=== PATIENT | male | born 1985 | race Caucasian/White ===

== ENCOUNTER 2016-10-28 12:56 | Emergency (ER) | payer OTHER | END 2016-10-28 14:32 | disposition home or self-care (01) | DX: J06.9 Acute upper respiratory infection, unspecified (principal); B97.89 Other viral agents as the cause of diseases classified elsewhere ==

== ENCOUNTER 2017-03-29 19:46 | Emergency (ER) | payer OTHER ==
[2017-03-29] MEDS ORDERED: SODIUM CHLORIDE 0.9% 1,000 ML IV ONE (20:28)
[2017-03-29] MEDS ORDERED: PROCHLORPERAZINE INJ 10 MG in SODIUM CHLORIDE 0.9% 50 ML IV ONE (20:28)
[2017-03-29] MEDS ORDERED: diphenhydrAMINE INJ 50 MG/ML VIAL IVP STA (20:28)
--- NOTE | 2017-03-29 20:31 | ED Physician Documentation ---
History of Present Illness - Stated complaint Stated Complaint: HEADACHE/DEHYDRATION - Chief complaint Chief Complaint: General - History obtained from History obtained from: Patient - Additonal information Additional information: She is a 31-year-old male who is the. He presents with a complaint of generalized malaise, fatigue, weakness and a frontal headache. His symptoms started on when he was exercising and believes he got exposed to excessive heat. He has been hydrating from that point to the present however the headache and malaise continues. He denies any chest pain or shortness of breath. There is no abdominal pain, nausea, vomiting constipation diarrhea or lower urinary symptoms. He does say his throat feels a little sore that he had a low-grade fever last night at 100.2. He did take a Tylenol today. Review of systems: For pertinent positive and negatives in the review of systems please see history of present illness. Otherwise all other systems have been reviewed and are negative. Dragon disclaimer: Parts of this medical record were created using voice recognition technology. Because of the inherent limitations of this system occasional same sounding word substitutions do occur and persist despite proofreading. Please read the document for context. Review of Systems Ten Systems: 10 systems reviewed and negative Constitutional: reports: Fever, Chills, Myalgias Eyes: denies: Loss of vision, Discharge Ears: denies: Loss of hearing, Tinnitus/ringing Nose: denies: Rhinorrhea / runny nose, Epistaxis Throat: reports: Sore throat Cardiac: denies: Chest pain / pressure, Palpitations Respiratory: denies: Dyspnea, Cough GI: denies: Abdominal Pain, Abdominal Swelling, Nausea, Vomiting : denies: Dysuria, Frequency PD PAST MEDICAL HISTORY - Past Medical History Past Medical History: Yes Cardiovascular: None Respiratory: None Neuro: None Endocrine/Autoimmune: None GI: None : Kidney stones HEENT: None Psych: None Musculoskeletal: None Derm: None - Past Surgical History Past Surgical History: No - Present Medications Home Medications: Ambulatory Orders Medication Instructions Recorded Confirmed Ibuprofen 600 mg PO Q6HR PRN #30 tablet 04/02/15 Ondansetron Odt [Zofran] 4 mg TL Q6H PRN #10 tablet 04/02/15 Oxycodone HCl/Acetaminophen 1 - 2 each PO Q6H PRN #15 tablet 07/19/15 [Percocet 5-325 mg Tablet] Tamsulosin [Flomax] 0.4 mg PO DAILY #10 capsule 04/02/15 Ondansetron Odt [Zofran] 4 mg TL Q6H PRN #10 tablet 04/10/15 Oxycodone HCl/Acetaminophen 1 - 2 each PO Q6H PRN #15 tablet 04/10/15 [Percocet 5-325 mg Tablet] Benzonatate [Tessalon [place]] 100 mg PO TID PRN #20 capsule 10/28/16 - Allergies Allergies/Adverse Reactions: Allergies Allergy/AdvReac Type Severity Reaction Status Date / Time No Known Drug Allergies Allergy Verified 03/29/17 20:01 - Social History Does the pt smoke?: No Smoking Status: Never smoker Does the pt drink ETOH?: No Does the pt have substance abuse?: No - Immunizations Immunizations are current?: Yes - POLST Patient has POLST: No PD ED PE NORMAL - Vitals Vital signs reviewed: Yes - General General: Alert and oriented X 3, No acute distress, Well developed/nourished - HEENT HEENT: Atraumatic, PERRL, Ears normal, Other - Neck Neck: Supple, no meningeal sign - Cardiac Cardiac: RRR, No murmur, No gallop, No rub - Respiratory Respiratory: No respiratory distress, Clear bilaterally - Abdomen Abdomen: Normal bowel sounds, Non tender, Non distended - Derm Derm: Normal color, Warm and dry, No rash, Other - Extremities Extremities: No deformity Results - Vitals Vitals: Vital Signs - 24 hr 03/29/17 03/29/17 03/29/17 19:58 21:15 22:43 Temperature 36.7 C 36.6 C Heart Rate 78 70 74 Respiratory 18 18 18 Rate Blood Pressure 114/72 116/72 O2 Saturation 96 98 98 03/29/17 23:32 Temperature Heart Rate 70 Respiratory 17 Rate Blood Pressure 128/57 L O2 Saturation 96 Oxygen O2 Source Room air - Labs Labs: Laboratory Tests 03/29/17 03/29/17 03/29/17 20:36 20:36 20:36 WBC 6.7 RBC 5.36 Hgb 14.4 Hct 42.5 MCV 79.2 L MCH 26.8 L MCHC 33.8 RDW 13.5 Plt Count 161 MPV 7.2 L Neut # 3.9 Lymph # 1.4 L [place] # 1.3 H Eos # 0.0 Baso # 0.0 Absolute Nucleated RBC 0.00 Nucleated RBCs 0.0 Sodium 137 Potassium 3.5 Chloride 99 L Carbon Dioxide 30 Anion Gap 8.0 BUN 9 Creatinine 0.7 Estimated GFR (MDRD) 132 Glucose 96 Calcium 8.9 Infectious [place] Assay NEGATIVE Group A Strep Rapid 03/29/17 20:56 WBC RBC Hgb Hct MCV MCH MCHC RDW Plt Count MPV Neut # Lymph # [place] # Eos # Baso # Absolute Nucleated RBC Nucleated RBCs Sodium Potassium Chloride Carbon Dioxide Anion Gap BUN Creatinine Estimated GFR (MDRD) Glucose Calcium Infectious [place] Assay Group A Strep Rapid Negative PD MEDICAL DECISION MAKING - ED course ED course: Patient is a healthy 31-year-old male who overheated while exercising on . The next few days he felt weak and tired and also had a little bit of throat pain and also was complaining of a frontal headache. Sure he does not feel good. On physical examination here he had a normal neurologic, cardiac , and pulmonary exam. It was noted that he had a slightly erythematous throat with a white pocket of pus. A throat swab was negative for strep and a Monospot was negative as well. He is given a liter of normal saline a small amount to [employer] and [employer] and watch for a couple hours. He slept briefly and woke up feeling much better his headache is gone and he looks and feels much better at this time. I am not sure exactly what is going on with him I think perhaps a little by heat exposure followed by possibly a viral syndrome. I do not think anything serious is going on with him and at this point in time he will be discharged home he says he will continue hydration orally at home watch his symptoms closely and return if worse. Disposition: To home Clinical impression: 1. Frontal headache-resolved 2. Suspect viral syndrome possibly some heat Exhaustion earlier in the week Departure - Departure Disposition: 01 Home, Self Care Clinical Impression: Head ache, Dehydration Condition: Good Instructions: ED Dehydration, ED Viral Syndrome Follow-Up: DORIE GOMES [Primary Care Provider] -
[2017-03-29] MEDS ORDERED: diphenhydrAMINE INJ 50 MG/ML VIAL ONE (20:44)
[2017-03-29] MEDS ORDERED: PROCHLORPERAZINE 10 MG/2 ML VIAL ONE (20:44)
[2017-03-29 20:45] LABS: BASOPHILS % (AUTO) 0.7 %; EOSINOPHILS % (AUTO) 0.4 %; HCT - HEMATOCRIT 42.5 % (42.0-52.0); HGB - HEMOGLOBIN 14.4 g/dL (14.0-18.0); LYMPHOCYTES # (AUTO) 1.4 10^3/uL (1.5-3.5); LYMPHOCYTES % (AUTO) 21.7 %; MEAN CORPUSCULAR HEMOGLOBIN 26.8 pg (27.0-31.0); MEAN CORPUSCULAR HGB CONC 33.8 g/dL (32.0-36.0); MEAN CORPUSCULAR VOLUME 79.2 fL (80.0-94.0); MEAN PLATELET VOLUME 7.2 fL (7.4-11.4); MONOCYTES # (AUTO) 1.3 10^3/uL (0.0-1.0); MONOCYTES % (AUTO) 19.1 %; NEUTROPHILS # (AUTO) 3.9 10^3/uL (1.5-6.6); NEUTROPHILS % (AUTO) 58.1 %; RED BLOOD COUNT 5.36 10^6/uL (4.70-6.10); RED CELL DISTRIBUTION WIDTH 13.5 % (12.0-15.0); UNCORRECTED WHITE BLOOD COUNT 6.7 x10^3/uL; WHITE BLOOD COUNT 6.7 x10^3/uL (4.8-10.8)
[2017-03-29 20:51] LABS: MONO NEG QC NEGATIVE (Negative); MONO POS QC POSITIVE (Positive)
[2017-03-29 20:52] LABS: CALCIUM 8.9 mg/dL (8.5-10.3); CREATININE 0.7 mg/dL (0.6-1.2); POTASSIUM 3.5 mmol/L (3.5-5.0)
[2017-03-29 21:10] LABS: RAPID STREP SCREEN REAGENT QC YELLOW (YELLOW)
[2017-03-29] MEDS ORDERED: SULFAMETH/TRIMETH DS 800/160 MG TABLET PO STA (22:23)
[2017-03-29] MEDS ORDERED: SULFAMETH/TRIMETH DS 800/160 MG TABLET PO ONE (22:37)
[2017-03-29 23:33] VITALS: BP 128/57
== END 2017-03-30 00:02 | disposition home or self-care (01) ==
LOC: ED 19:46
DX: E86.0 Dehydration (principal); R51 Headache
CPT/HCPCS: 36415; 80048; 85025; 86308; 87070; 87430; 96374; 96375; 99283; 99284; A9270

== ENCOUNTER 2020-12-12 17:51 | Emergency (ER) | payer OTHER ==
[2020-12-12 18:04] VITALS: BP 131/83
--- NOTE | 2020-12-12 18:15 | ED Physician Documentation ---
PD HPI HEENT - Stated complaint Stated Complaint: NOSE BLEED - Chief complaint Chief Complaint: Heent - History obtained from History obtained from: Patient - Additional information Additional information: He had 15 minutes of bleeding from the left nares prior to arrival. It has already stopped. No sinus symptoms. No easy bleeding or bruising. Review of Systems Constitutional: reports: Reviewed and negative Ears: reports: Reviewed and negative Nose: reports: Epistaxis, Reviewed and negative PD PAST MEDICAL HISTORY - Past Medical History Past Medical History: Yes Cardiovascular: None Respiratory: None Endocrine/Autoimmune: None GI: None : Kidney stones HEENT: None Psych: None Musculoskeletal: None Derm: None - Past Surgical History Past Surgical History: Yes - Present Medications Home Medications: Ambulatory Orders Medication Instructions Recorded Confirmed Ibuprofen 600 mg PO Q6HR PRN #30 tablet 04/02/15 12/12/20 - Allergies Allergies/Adverse Reactions: Allergies Allergy/AdvReac Type Severity Reaction Status Date / Time No Known Drug Allergies Allergy Verified 12/12/20 18:00 - Social History Does the pt smoke?: No Smoking Status: Never smoker Does the pt drink ETOH?: No Does the pt have substance abuse?: No - Immunizations Immunizations are current?: Yes - POLST Patient has POLST: No PD ED PE NORMAL - Vitals Vital signs reviewed: Yes - General General: Alert and oriented X 3, No acute distress - HEENT HEENT: Other (No active bleeding from the left nares, there is an abraded area on the septum.) - Neuro Neuro: Alert and oriented X 3, Normal speech Results - Vitals Vitals: Vital Signs - 24 hr 12/12/20 18:01 Temperature 37 C Heart Rate 71 Respiratory 16 Rate Blood Pressure 131/83 H O2 Saturation 97 Oxygen O2 Source Room air Departure - Departure Disposition: Home, Self Care Clinical Impression: Epistaxis Condition: Good Record reviewed to determine appropriate education?: Yes Instructions: ED Nosebleed Comments: Return as needed if bleeding recurs but you can try simple pressure first.
== END 2020-12-12 18:23 | disposition home or self-care (01) ==
LOC: ED 17:51
DX: R04.0 Epistaxis (principal); S00.31XA Abrasion of nose, initial encounter; X58.XXXA Exposure to other specified factors, initial encounter
CPT/HCPCS: 99281

== ENCOUNTER 2021-01-14 04:04 | Outpatient (CLI) | payer OTHER | END 2021-01-14 04:05 | disposition critical access hospital (66) | LOC: EMS 04:04 | DX: M54.5 Low back pain (principal); R10.9 Unspecified abdominal pain; R11.0 Nausea; R42 Dizziness and giddiness; Z87.442 Personal history of urinary calculi | CPT/HCPCS: A0425; A0427 ==

== ENCOUNTER 2021-01-14 04:26 | Emergency (ER) | payer OTHER ==
[2021-01-14] MEDS ORDERED: METOCLOPRAMIDE 10 MG/2 ML VIAL IVP STA (04:35)
[2021-01-14] MEDS ORDERED: SODIUM CHLORIDE 0.9% 1,000 ML IV STA (04:43)
[2021-01-14] MEDS ORDERED: KETOROLAC 30 MG/ML VIAL IVP STA (04:43)
--- NOTE | 2021-01-14 04:47 | ED Physician Documentation ---
History of Present Illness - Stated complaint Stated Complaint: LOWER BACK PAIN, DARK URINE - Chief complaint Chief Complaint: Abd Pain - History obtained from History obtained from: Patient - Additonal information Additional information: 35-year-old man with past medical history of kidney stones presents with sudden onset pain in the middle of the night in his right back radiating to the mid abdomen associated with nonbloody nonbilious nausea and vomiting. Patient states that he was feeling normal yesterday. He endorses going to the restroom attempting to urinate and having sharp pain in the penis with molasses like urine and difficulty initiating a stream. Pain is severe, constant, without exacerbating or relieving factors, not improved with fentanyl given by EMS. They also gave 4 of Zofran however he is still nauseous. Denies fevers, diarrhea, rashes. Review of Systems Ten Systems: 10 systems reviewed and negative Constitutional: denies: Fever, Chills GI: reports: Abdominal Pain, Nausea, Vomiting Musculoskeletal: reports: Back pain PD PAST MEDICAL HISTORY - Past Medical History Cardiovascular: None Respiratory: None Endocrine/Autoimmune: None GI: None : Kidney stones HEENT: None Psych: None Musculoskeletal: None Derm: None - Past Surgical History Past Surgical History: Yes - Present Medications Home Medications: Ambulatory Orders Medication Instructions Recorded Confirmed Ibuprofen 600 mg PO Q6HR PRN #30 tablet 04/02/15 12/12/20 Tamsulosin [Flomax] 0.4 mg PO DAILY #14 tab 01/14/21 oxyCODONE/ACET 5/325 [Percocet 5 1 each PO Q4-6H #14 tablet 01/14/21 mg/325 mg] - Allergies Allergies/Adverse Reactions: Allergies Allergy/AdvReac Type Severity Reaction Status Date / Time No Known Drug Allergies Allergy Unverified 01/14/21 04:33 - Social History Does the pt smoke?: No Smoking Status: Never smoker Does the pt drink ETOH?: No Does the pt have substance abuse?: No - Immunizations Immunizations are current?: Yes - POLST Patient has POLST: No PD ED PE NORMAL - Vitals Vital signs reviewed: Yes - General General: Alert and oriented X 3, Well developed/nourished, Other (Moderate distress) - HEENT HEENT: Atraumatic, PERRL, EOMI - Neck Neck: Supple, no meningeal sign - Cardiac Cardiac: RRR - Respiratory Respiratory: No respiratory distress, Clear bilaterally - Abdomen Abdomen: Non tender, Non distended, Other (Discomfort to suprapubic palpation) - Male Male : Deferred - Rectal Rectal: Deferred - Back Back: Other (Right CVA tender to palpation) - Derm Derm: Normal color, Warm and dry - Extremities Extremities: No deformity - Neuro Neuro: Alert and oriented X 3 - Psych Psych: Normal mood, Normal affect Results - Vitals Vitals: Vital Signs - 24 hr 01/14/21 04:33 Temperature 36.1 C L Heart Rate 78 Respiratory 22 Rate Blood Pressure 127/81 H O2 Saturation 97 Oxygen O2 Source Room air - Labs Labs: Laboratory Tests 01/14/21 01/14/21 01/14/21 05:12 05:40 05:40 WBC 11.0 H RBC 5.51 Hgb 15.5 Hct 44.8 MCV 81.3 MCH 28.1 MCHC 34.6 RDW 12.1 Plt Count 255 MPV 9.2 Neut # (Auto) 8.4 H Lymph # (Auto) 1.8 [place] # (Auto) 0.7 Eos # (Auto) 0.1 Baso # (Auto) 0.1 Absolute Nucleated RBC 0.00 Nucleated RBC % 0.0 Sodium 136 Potassium 3.3 L Chloride 101 Carbon Dioxide 26 Anion Gap 9.0 BUN 10 Creatinine 0.9 Estimated GFR (MDRD) 96 Glucose 173 H Calcium 8.7 Total Bilirubin 0.7 AST 21 ALT 26 Alkaline Phosphatase 87 Total Protein 7.6 Albumin 4.4 Globulin 3.2 Albumin/Globulin Ratio 1.4 Lipase 36 Urine Color YELLOW Urine Clarity CLEAR Urine pH 7.5 Ur Specific [place] 1.020 Urine Protein NEGATIVE Urine Glucose (UA) NEGATIVE Urine Ketones NEGATIVE Urine Occult Blood LARGE H Urine Nitrite NEGATIVE Urine Bilirubin NEGATIVE Urine Urobilinogen 0.2 (NORMAL) Ur Leukocyte Esterase NEGATIVE Urine RBC 11-25 H Urine WBC 0-3 Ur Squamous Epith Cells NONE SEEN Urine Bacteria Rare Urine Mucus Few Strands Ur Microscopic Review INDICATED Urine Culture Comments NOT INDICATED PD MEDICAL DECISION MAKING - ED course ED course: 35-year-old man presents with likely recurrent kidney stones. Will obtain CT, labs, urine and reassess. Departure - Departure Disposition: 01 Home, Self Care Clinical Impression: Kidney stones Condition: Good Instructions: Kidney Stones Follow-Up: Juany Loera MD [Physician No Access] - Prescriptions: Tamsulosin [Flomax] 0.4 mg PO DAILY #14 tab oxyCODONE/ACET 5/325 [Percocet 5 mg/325 mg] 1 each PO Q4-6H #14 tablet Comments: You are seen in the emergency department for kidney stones. You appear to have a moderate sized stone lodged in your left kidney and you have passed a smaller stone on the right side that would explain your symptoms. Hopefully, you should not have any more pain however I am going to prescribe a short course of pain medication. If you do not use it then make sure that you flushed down the toilet or dispose it appropriately at your local pharmacy. Return the emergency department if you have any new or worsening symptoms or other concerns. Follow- up with urology.
[2021-01-14 05:18] LABS: BILIRUBIN,URINE NEGATIVE (NEGATIVE); CLARITY,URINE CLEAR (CLEAR); GLUCOSE, URINE (UA) NEGATIVE (NEGATIVE); KETONES,URINE (UA) NEGATIVE (NEGATIVE); LEUKOCYTE ESTERASE, URINE NEGATIVE (NEGATIVE); NITRITE,URINE NEGATIVE (NEGATIVE); OCCULT BLOOD,URINE LARGE (NEGATIVE); PH,URINE 7.5 PH (5.0-7.5); PROTEIN,URINE NEGATIVE (NEGATIVE); UROBILINOGEN,URINE 0.2 (NORMAL) E.U./dL (NORMAL)
[2021-01-14] MEDS ORDERED: IOPAMIDOL-300 100 ML VIAL ONE (05:21)
[2021-01-14 05:25] LABS: BACTERIA,URINE Rare /HPF (None Seen); MUCUS,URINE Few Strands; SQUAMOUS EPITHELIAL CELL,UR NONE SEEN (<= Few); WBC,URINE 0-3 /HPF (0-3)
[2021-01-14 05:46] LABS: BASOPHILS # (AUTO) 0.1 10^3/uL (0.0-0.1); BASOPHILS % (AUTO) 0.5 %; EOSINOPHILS # (AUTO) 0.1 10^3/uL (0.0-0.7); EOSINOPHILS % (AUTO) 0.7 %; HCT - HEMATOCRIT 44.8 % (42.0-52.0); HGB - HEMOGLOBIN 15.5 g/dL (14.0-18.0); LYMPHOCYTES # (AUTO) 1.8 10^3/uL (1.5-3.5); MEAN CORPUSCULAR HEMOGLOBIN 28.1 pg (27.0-31.0); MEAN CORPUSCULAR HGB CONC 34.6 g/dL (32.0-36.0); MEAN CORPUSCULAR VOLUME 81.3 fL (80.0-94.0); MEAN PLATELET VOLUME 9.2 fL (7.4-11.4); MONOCYTES # (AUTO) 0.7 10^3/uL (0.0-1.0); NEUTROPHILS # (AUTO) 8.4 10^3/uL (1.5-6.6); NEUTROPHILS % (AUTO) 76.5 %; PLT - PLATELET COUNT 255 10^3/uL (130-450); RED BLOOD COUNT 5.51 10^6/uL (4.70-6.10); RED CELL DISTRIBUTION WIDTH 12.1 % (12.0-15.0)
[2021-01-14 05:59] LABS: ALBUMIN 4.4 g/dL (3.2-5.5); ALBUMIN/GLOBULIN RATIO 1.4 (1.0-2.2); BILIRUBIN,TOTAL 0.7 mg/dL (0.2-1.0); CALCIUM 8.7 mg/dL (8.5-10.3); CREATININE 0.9 mg/dL (0.6-1.2); POTASSIUM 3.3 mmol/L (3.5-5.0); TOTAL PROTEIN 7.6 g/dL (6.7-8.2)
[2021-01-14] MEDS ORDERED: IOPAMIDOL-300 100 ML VIAL IVP ONE (06:36)
[2021-01-14] MEDS ORDERED: ONDANSETRON 4 MG/2 ML VIAL IVP STA (06:40)
[2021-01-14 07:04] VITALS: BP 135/82
--- NOTE | 2021-01-14 10:44 | CT Report ---
PROCEDURE: Abdomen/Pelvis W INDICATIONS: Abdominal pain, acute, nonlocalized CONTRAST: IV CONTRAST: Isovue 300 ml: 100 PO CONTRAST: *NO PO CONTRAST TECHNIQUE: After the administration of nonionic contrast, 5 mm thick sections acquired from the diaphragms to th e symphysis. 5 mm thick coronal and sagittal reformats were acquired. For radiation dose reduction, the following was used: automated exposure control, adjustment of mA and/or kV according to patient size. COMPARISON: None. FINDINGS: Image quality: Excellent. ABDOMEN: Lung bases: Lung bases are clear. Heart size is normal. Solid organs: Liver and spleen are normal in size and enhancement. Gallbladder is unremarkable Chuck iary system is non dilated. Pancreas enhances normally. No adrenal nodules. There is a mildly delay ed right nephrogram. There is mild to moderate right-sided hydroureteronephrosis. There is an obstruc ting 3 mm calculi at the right ureterovesicular junction. There is mild inflammation adjacent to the right collecting system. Additional nonobstructing nephroliths are noted on the left side. Peritoneum and bowel: Bowel loops demonstrate normal wall thickness and caliber. No free fluid or a ir. Nodes and vessels: No retroperitoneal or mesenteric adenopathy by size criteria. Aorta and inferior vena cava are normal in size. Miscellaneous: Small fat-containing periumbilical hernia. PELVIS: Genitourinary: Bladder wall thickness is normal. Miscellaneous: No inguinal hernias or adenopathy. Bones: No suspicious bony lesions. No vertebral body compression fractures. IMPRESSION: Obstructing 3 mm right ureterovesicular junction calcification resulting in mild to moderate right hy droureteronephrosis. Agree with preliminary report. Reviewed by: Joel Antonio DO on 01/14/2021 9:43 AM ALDO Approved by: Joel Antonio DO on 01/14/2021 9:43 AM ALDO Station ID: [id number]
== END 2021-01-14 07:27 | disposition home or self-care (01) ==
LOC: EDUNIT# → ED 04:26
DX: N13.2 Hydronephrosis with renal and ureteral calculous obstruction (principal); N20.0 Calculus of kidney
CPT/HCPCS: 36415; 74177; 80053; 81001; 83690; 85025; 96361; 96374; 96375; 99284; J2765; Q9967; 81003; 87086

== ENCOUNTER 2021-05-31 14:22 | Emergency (ER) | payer OTHER ==
[2021-05-31 14:45] LABS: BASOPHILS # (AUTO) 0.1 10^3/uL (0.0-0.1); BASOPHILS % (AUTO) 0.8 %; EOSINOPHILS % (AUTO) 0.5 %; HCT - HEMATOCRIT 45.5 % (42.0-52.0); HGB - HEMOGLOBIN 15.4 g/dL (14.0-18.0); LYMPHOCYTES # (AUTO) 2.1 10^3/uL (1.5-3.5); LYMPHOCYTES % (AUTO) 23.6 %; MEAN CORPUSCULAR HEMOGLOBIN 27.4 pg (27.0-31.0); MEAN CORPUSCULAR HGB CONC 33.8 g/dL (32.0-36.0); MONOCYTES # (AUTO) 0.6 10^3/uL (0.0-1.0); MONOCYTES % (AUTO) 7.3 %; NEUTROPHILS # (AUTO) 5.9 10^3/uL (1.5-6.6); NEUTROPHILS % (AUTO) 67.6 %; PLT - PLATELET COUNT 264 10^3/uL (130-450); RED BLOOD COUNT 5.62 10^6/uL (4.70-6.10); RED CELL DISTRIBUTION WIDTH 12.5 % (12.0-15.0); WHITE BLOOD COUNT 8.7 x10^3/uL (4.8-10.8)
[2021-05-31 15:02] LABS: ALBUMIN 4.5 g/dL (3.2-5.5); ALBUMIN/GLOBULIN RATIO 1.3 (1.0-2.2); BILIRUBIN,TOTAL 0.6 mg/dL (0.2-1.0); CALCIUM 9.3 mg/dL (8.5-10.3); CREATININE 0.8 mg/dL (0.6-1.2); POTASSIUM 3.6 mmol/L (3.5-5.0)
[2021-05-31 15:58] LABS: BILIRUBIN,URINE NEGATIVE (NEGATIVE); GLUCOSE, URINE (UA) NEGATIVE (NEGATIVE); KETONES,URINE (UA) NEGATIVE (NEGATIVE); LEUKOCYTE ESTERASE, URINE NEGATIVE (NEGATIVE); NITRITE,URINE NEGATIVE (NEGATIVE); OCCULT BLOOD,URINE LARGE (NEGATIVE); PH,URINE 6.5 PH (5.0-7.5); PROTEIN,URINE NEGATIVE (NEGATIVE); UROBILINOGEN,URINE 0.2 (NORMAL) E.U./dL (NORMAL)
[2021-05-31 15:59] LABS: CLARITY,URINE CLEAR (CLEAR)
[2021-05-31 16:07] LABS: RBC,URINE TNTC /HPF (0-5); WBC,URINE 0-3 /HPF (0-3)
[2021-05-31 16:08] LABS: BACTERIA,URINE Rare /HPF (None Seen); MUCUS,URINE Few Strands; SQUAMOUS EPITHELIAL CELL,UR NONE SEEN (<= Few)
--- NOTE | 2021-05-31 16:50 | ED Physician Documentation ---
History of Present Illness - Stated complaint Stated Complaint: HEMATURIA - Chief complaint Chief Complaint: Abd Pain - History obtained from History obtained from: Patient - History of Present Illness Timing: Today Pain level max: 3 Pain level now: 2 - Additonal information Additional information: 36-year-old male who presents to the emergency department with mild right flank pain and hematuria today. Similar to prior kidney stones. Nothing makes it better or worse. Review of Systems Constitutional: denies: Fever, Chills GI: denies: Nausea, Vomiting, Diarrhea, Hematemesis, Bloody / black stool Skin: denies: Rash Musculoskeletal: denies: Neck pain, Back pain Neurologic: denies: Headache PD PAST MEDICAL HISTORY - Past Medical History Cardiovascular: None Respiratory: None Endocrine/Autoimmune: None GI: None : Kidney stones HEENT: None Psych: None Musculoskeletal: None Derm: None - Past Surgical History Past Surgical History: Yes - Present Medications Home Medications: Ambulatory Orders Medication Instructions Recorded Confirmed Ibuprofen 600 mg PO Q6HR PRN #30 tablet 04/02/15 12/12/20 Tamsulosin [Flomax] 0.4 mg PO DAILY #14 tab 01/14/21 oxyCODONE/ACET 5/325 [Percocet 5 1 each PO Q4-6H #14 tablet 01/14/21 mg/325 mg] Ibuprofen [Motrin] 800 mg PO Q8H PRN #30 tablet 05/31/21 Ondansetron Odt [Zofran] 4 mg TL Q6H PRN #10 tablet 05/31/21 Oxycodone HCl/Acetaminophen 1 - 2 each PO Q6H PRN #14 tablet 05/31/21 [Percocet 5-325 mg Tablet] - Allergies Allergies/Adverse Reactions: Allergies Allergy/AdvReac Type Severity Reaction Status Date / Time No Known Drug Allergies Allergy Verified 05/31/21 14:31 - Social History Does the pt smoke?: No Smoking Status: Never smoker Does the pt drink ETOH?: No Does the pt have substance abuse?: No - Immunizations Immunizations are current?: Yes - POLST Patient has POLST: No PD ED PE NORMAL - Vitals Vital signs reviewed: Yes - General General: Alert and oriented X 3, No acute distress - HEENT HEENT: Moist mucous membranes - Neck Neck: Supple, no meningeal sign - Cardiac Cardiac: RRR - Respiratory Respiratory: No respiratory distress, Clear bilaterally - Abdomen Abdomen: Soft, Non tender, Non distended - Back Back: No CVA TTP, No spinal TTP - Derm Derm: Warm and dry - Extremities Extremities: No edema - Neuro Neuro: Alert and oriented X 3 Results - Vitals Vitals: Vital Signs - 24 hr 05/31/21 05/31/21 05/31/21 14:28 14:31 17:06 Temperature 36.2 C L 36.5 C 37.4 C Heart Rate 69 69 65 Respiratory 16 16 18 Rate Blood Pressure 125/86 H 125/86 H 124/82 H O2 Saturation 96 96 99 05/31/21 18:35 Temperature 37.0 C Heart Rate 66 Respiratory 16 Rate Blood Pressure 124/82 H O2 Saturation 100 Oxygen O2 Source Room air - Labs Labs: Laboratory Tests 05/31/21 05/31/21 05/31/21 14:40 14:40 15:51 WBC 8.7 RBC 5.62 Hgb 15.4 Hct 45.5 MCV 81.0 MCH 27.4 MCHC 33.8 RDW 12.5 Plt Count 264 MPV 9.0 Neut # (Auto) 5.9 Lymph # (Auto) 2.1 [place] # (Auto) 0.6 Eos # (Auto) 0.0 Baso # (Auto) 0.1 Absolute Nucleated RBC 0.00 Nucleated RBC % 0.0 Sodium 136 Potassium 3.6 Chloride 100 L Carbon Dioxide 27 Anion Gap 9.0 BUN 10 Creatinine 0.8 Estimated GFR (MDRD) 109 Glucose 100 Calcium 9.3 Total Bilirubin 0.6 AST 23 ALT 33 Alkaline Phosphatase 92 Total Protein 8.0 Albumin 4.5 Globulin 3.5 Albumin/Globulin Ratio 1.3 Lipase 32 Urine Color YELLOW Urine Clarity CLEAR Urine pH 6.5 Ur Specific [place] 1.015 Urine Protein NEGATIVE Urine Glucose (UA) NEGATIVE Urine Ketones NEGATIVE Urine Occult Blood LARGE H Urine Nitrite NEGATIVE Urine Bilirubin NEGATIVE Urine Urobilinogen 0.2 (NORMAL) Ur Leukocyte Esterase NEGATIVE Urine RBC TNTC H Urine WBC 0-3 Ur Squamous Epith Cells NONE SEEN Urine Bacteria Rare Urine Mucus Few Strands Ur Microscopic Review INDICATED Urine Culture Comments NOT INDICATED - Rads (name of study) CT abd/pelvis Radiology: Final report received, EMP read contemporaneously, See rad report PD MEDICAL DECISION MAKING - ED course Complexity details: reviewed results, re-evaluated patient, considered differential, d/w patient ED course: 36-year-old male with a proximal left ureteral stone. No hydronephrosis. No pain here. Declines pain medication here. Recommend that he follow-up with urology. Recommend that he increase his water intake. Patient counseled regarding signs and symptoms for which I believe and urgent re-evaluation would be necessary. Patient with good understanding of and agreement to plan and is comfortable going home at this time This document was made in part using voice recognition software. While efforts are made to proofread this document, sound alike and grammatical errors may occur. IMPRESSION: 1. Obstructing calculus in the proximal left ureter measuring 0.6 x 0.4 cm. No significant hydronephrosis. 2. Additional small nonobstructing kidney stone in the left kidney. 3. The previously seen obstructing and nonobstructing right kidney stones are no longer present compared to January 2021. Departure - Departure Disposition: Home, Self Care Clinical Impression: Ureterolithiasis Condition: Good Instructions: ED Stone Renal W Colic Follow-Up: your,doctor in 1 week [Other] Prescriptions: Ibuprofen [Motrin] 800 mg PO Q8H PRN #30 tablet PRN Reason: PAIN &/OR FEVER Oxycodone HCl/Acetaminophen [Percocet 5-325 mg Tablet] 1 - 2 each PO Q6H PRN #14 tablet PRN Reason: pain Ondansetron Odt [Zofran] 4 mg TL Q6H PRN #10 tablet PRN Reason: Nausea / Vomiting Comments: Your prescriptions were sent to [facility] in [place]. Please follow-up with your doctor for further care. You do have a left-sided ureteral stone about 5mm. Please follow-up with urology for further care. I am prescribing a short course of narcotic pain medication for you. These are potentially dangerous and addictive medications that should be used carefully. These medications may constipate you. Take an [id number] stool softener (docusate) twice daily with plenty of water while taking these medications. If you go 24 hours without a bowel movement, take [id number] miralax, per package instructions. Do not drink or drive while taking these medications. If you received narcotic or sedating medications while in the emergency department, do not drive for 24 hours. Store this medication in a safe, secure place and out of reach of children. It is a violation of federal law to give or sell this medication to another person or to use in a manner other than prescribed. The ED will not refill narcotic prescriptions, including prescriptions lost or stolen. To dispose of unwanted medications: 1. [facility] at [address] in [place] has a medication drop box. They accept prescription medications (in pill form) Friday through Friday 9:00 a.m. to 5:00 p.m. 2. The [facility] accepts prescription medications (in pill form only) for disposal year round. Call for more information. 3. Contact the [facility] for the next [employer] sponsored prescription drug collection event. , [phone], or [phone]; Discharge Date/Time: 05/31/21 18:35
[2021-05-31 17:06] VITALS: BP 124/82
--- NOTE | 2021-05-31 18:53 | CT Report ---
PROCEDURE: Abdomen/Pelvis WO INDICATIONS: R flank pain, hematuria TECHNIQUE: Noncontrast 5 mm thick sections acquired from the diaphragms to the symphysis. 5 mm coronal and sagi ttal reformats were then performed. For radiation dose reduction, the following was used: automated exposure control, adjustment of mA and/or kV according to patient size. COMPARISON: CT abdomen and pelvis 01/14/2021. FINDINGS: Image quality: Excellent. ABDOMEN: Lung bases: Lung bases are clear. Heart size is normal. Solid organs: Liver and spleen are normal in size. Gallbladder is unremarkable. Pancreas is normal in contours. No adrenal nodules. Kidneys are normal in size, without hydronephrosis. Obstructing c alculus in the proximal right ureter measuring 0.6 x 0.4 cm, (3/40). The left renal pelvis is not sig nificantly dilated. Nonobstructing calculus in the left kidney measuring 0.3 cm, (3/38). On the prior CT there was a nonobstructing calculus in the right kidney which is no longer present. Peritoneum and bowel: Unenhanced bowel loops demonstrate normal wall thickness and caliber. Normal a ppendix. No free fluid or air. Nodes and vessels: No retroperitoneal or mesenteric adenopathy by size criteria. Aorta and inferior vena cava are normal in caliber. Circumaortic left renal vein. Miscellaneous: Tiny umbilical hernia. PELVIS: Genitourinary: Bladder wall thickness is normal. No bladder stones. Miscellaneous: No inguinal hernias or adenopathy. Bones: No suspicious bony lesions. No vertebral body compression fractures. IMPRESSION: 1. Obstructing calculus in the proximal left ureter measuring 0.6 x 0.4 cm. No significant hydronephr osis. 2. Additional small nonobstructing kidney stone in the left kidney. 3. The previously seen obstructing and nonobstructing right kidney stones are no longer present marla red to January 2021. Reviewed by: Santiago Krishnamurthy MD on 05/31/2021 5:52 PM ALDO Approved by: Santiago Krishnamurthy MD on 05/31/2021 5:52 PM [id number] Station ID: [id number]
== END 2021-05-31 18:35 | disposition home or self-care (01) ==
LOC: ED 14:22
DX: N20.2 Calculus of kidney with calculus of ureter (principal)
CPT/HCPCS: 36415; 80053; 81001; 81003; 83690; 85025; 87086; 99284

== ENCOUNTER 2023-11-28 12:10 | Outpatient (CLI) | payer OTHER ==
[2023-11-28 18:44] LABS: ALBUMIN 4.6 g/dL (3.2-5.5); ALKALINE PHOSPHATASE 111 IU/L (42-121); ALT ALANINE AMINOTRANSFERASE 39 IU/L (10-60); AST ASPARTATE AMINOTRANSFERASE 21 IU/L (10-42); BILIRUBIN,DIRECT 0.14 mg/dL (0.03-0.18); BILIRUBIN,TOTAL 0.6 mg/dL (0.2-1.0); CHOL/HDL RATIO 6.2 (<5.0); CHOLESTEROL 216 mg/dL; HDL CHOLESTEROL 35 mg/dL; LDL CHOLESTEROL,CALCULATED 139 mg/dL; TOTAL PROTEIN 7.8 g/dL (6.4-8.9); TRIGLYCERIDES 212 mg/dL (48-352); VLDL CHOLESTEROL 42 mg/dL
== END 2023-11-28 12:11 | disposition home or self-care (01) ==
LOC: LAB.N 12:10
PROVIDERS: ATTEND Family Medicine
DX: E78.00 Pure hypercholesterolemia, unspecified (principal)
CPT/HCPCS: 36415; 80061; 80076; 83721